=== PATIENT | female | born 1945 | race Caucasian/White ===

== ENCOUNTER 2017-09-12 15:23 | Emergency (ER) | payer MEDICARE, OTHER ==
[~2017-09-12] VITALS: Ht 175.3 cm; Wt 122.5 kg
[2017-09-12] MEDS ORDERED: CHOL10002 (15:47)
[2017-09-12] MEDS ORDERED: CETI5 PO (15:47)
[2017-09-12] MEDS ORDERED: LISI20 PO (15:47)
[2017-09-12] MEDS ORDERED: ASPI81CH PO (15:47)
[2017-09-12] MEDS ORDERED: Omeprazole20 M1 (15:48)
[2017-09-12] MEDS ORDERED: INSULANPEN SC (15:48)
[2017-09-12] MEDS ORDERED: Crestor5 MG PO (15:48)
[2017-09-14 10:20] LABS: Calcium, Ionized (POC) 1.23 mmol/L (1.10-1.46); Chloride (POC) 102 mmol/L (98-108); Creatinine (POC) 0.8 mg/dL (0.6-1.0); Glucose (ISTAT POC) 105 mg/dL (70-99); Hemoglobin (POC) 13.9 g/dL (12.0-16.0); Potassium (POC) 3.5 mmol/L (3.5-5.5); Sodium (POC) 143 mmol/L (135-148); Total CO2 (POC) 26 mmol/L (21-32)
== END 2017-09-12 16:20 | disposition home or self-care (01) ==
LOC: ER 15:23
PROVIDERS: Emergency Medicine
DX: R25.1 Tremor, unspecified (principal); E11.9 Type 2 diabetes mellitus without complications; E78.5 Hyperlipidemia, unspecified; I10 Essential (primary) hypertension; Z79.899 Other long term (current) drug therapy; Z79.82 Long term (current) use of aspirin; Z79.4 Long term (current) use of insulin
CPT/HCPCS: 80047; 85014; 99283